=== PATIENT | male | born 1965 | race Caucasian/White ===

== ENCOUNTER → 2018-08-05 | Outpatient (CLI) | payer OTHER ==
--- NOTE | 2018-08-07 09:49 | SLEEP ---
DATE OF STUDY: ATTENDING PHYSICIAN: Dr. Billie Bowman. The patient is a 53-year-old who weighs 325 pounds with a BMI of 41.7. The patient underwent home sleep study performed by [facility]. Total recording time was 400 minutes. During the night study, the patient had 26 obstructive apneas, 1 central apnea, 2 mixed apneas and 84 hypopneas. The patient's apnea-hypopnea index was 17 per hour. Supine sleep was not recorded. Nocturnal oximetry study revealed an average oxygen saturation of 91% with the lowest of 78%. 51 minutes were spent in oxygen saturation of less than 90%. Mean heart rate was 70 beats per minute. IMPRESSION: 1. Moderate sleep apnea-hypopnea syndrome at an AHI of 17 per hour. 2. Nocturnal hypoxia secondary to obstructive sleep apnea. RECOMMENDATIONS: 1. The patient would benefit from CPAP titration study. It can be performed in-lab or as a home auto-titration study. 2. Once the patient is treated with the PAP therapy, then patient should follow up in 4-6 weeks to assess compliance and to document clinical improvement. 3. Weight loss is strongly advised. 4. Avoid [employer] depressants. 5. Caution regarding driving until symptoms of sleep apnea resolve with the above recommendations. ANA ROSA CHARLES MD DR: GAGE/stephanie JOB#: [id number] / [id number] ecc Dr. Colby
== END | disposition home or self-care (01) ==
LOC: RT 07:23
DX: G47.33 Obstructive sleep apnea (adult) (pediatric) (principal); G47.34 Idiopathic sleep related nonobstructive alveolar hypoventilation
CPT/HCPCS: G0399